=== PATIENT | female | born 1950 | race Caucasian/White ===

== ENCOUNTER 2017-03-03 01:46 | Emergency (ER) | payer MEDICARE, OTHER ==
[2017-03-03] MEDS ORDERED: ONDANSETRON HCL 4 MG/2 ML VIAL ONE (02:04)
[2017-03-03] MEDS ORDERED: KETOROLAC TROMETHAMINE 30 MG/ML VIAL ONE (02:11)
[2017-03-03] MEDS ORDERED: FAMOTIDINE IN SALINE, ISO-OSM 50 ML IV ONE (02:11)
[2017-03-03 02:25] LABS: BLOOD UREA NITROGEN 18 mg/dL (7-17); CHLORIDE 108 mmol/L (98-107); CREATININE 0.7 mg/dL (0.5-1.0); EST GLOMERULAR FILTRATION RATE > 60 mL/min; GLUCOSE 139 mg/dL (70-100); POTASSIUM 3.2 mmol/L (3.5-5.1); SODIUM 143 mmol/L (137-145)
[2017-03-03] MEDS ORDERED: POTASSIUM EFF 25 MEQ TABLET ONE (03:00)
[2017-03-03] MEDS ORDERED: ONDANSETRON ODT PREPAC 4 MG TAB.RAPDIS PO ONE (03:01)
--- NOTE | 2017-03-03 03:43 | ER NURSING DOCUMENTATION ---
Nurse's Notes [facility] Name:Brooklynn Encarnacion Age:66 yrs Sex:Female :1950 Arrival Date:03/03/2017 Time:01:46 Bed4 Private MD:Natasha Rodrigues Diagnosis:Vomiting - Dehydration Presentation: 03/03 01:50 Acuity: HU 2 rh 02:06 Presenting complaint: Patient states: Nausea and vomiting since midnight. Pt awoke, rh vomited once and then has been dry heaving since. Transition of care: Home. 02:06 Method Of Arrival: Private Vehicle rh Triage Assessment: 01:50 General: Appears distressed, uncomfortable, Behavior is anxious. Pain: Complains of rh pain in abdomen. EENT: Oral mucosa is dry. Neuro: Level of Consciousness is awake, alert, obeys commands, Oriented to person, place, time, event. Cardiovascular: Capillary refill < 3 seconds. Respiratory: Airway is patent Respiratory effort is even, Respiratory pattern is hyperventilation. GI: Reports cramping, nausea, vomiting. : No deficits noted. Derm: Skin is intact, is healthy with good turgor, Skin is moist, Skin is pink, warm & dry. Historical: - Allergies: NSAIDS; - Home Meds: 1. meloxicam 7.5 mg oral tab 1 tab once daily 2. Valtrex 1 g oral tab 2 tab 2 times per day, as needed 3. sertraline 100 mg oral tab 1 tab once daily 4. Vitamin B-12 1,000 mcg oral tab 3 times per week 5. aspirin 81 mg oral tab 1 tab once daily - PMHx: DEPRESSION; OSTEOPENIA; SCIATICA; OSTEOARTHRITIS; CONSTIPATION; IBS; GERD; ANXIETY; HYPONATREMIA; HYPERLIPIDEMIA; ADENOCARCINOMA LEFT BREAST; - PSHx: HIP REPLACEMENT R; Tonsillectomy; L FOREARM ORIF; - Tetanus: < 10 years. - Ebola Screening: : Patient negative for fever greater than or equal to 101.5 degrees Fahrenheit, and additional compatible Ebola Virus Disease symptoms. - Immunization history: Flu Vaccine < 1 year. - Social history: Smoking status: Patient states former smoker of tobacco. Screenin:10 Infectious Disease Risk None. Abuse screen: Denies threats or abuse. Denies injuries rh from another. Nutritional screening: No deficits noted. Assessment: 02:10 See Triage Assessment done by same RN. rh Vital Signs: 02:00 BP 162 / 89; Pulse 75; Resp 30; Temp 97.6(TE); Pulse Ox 99% on R/A; Weight 61.23 kg; rh Height 5 ft. 6 in. (167.64 cm); Pain 6/10; 02:26 BP 143 / 85; Pulse 76; Resp 16; Pulse Ox 97% on R/A; rh 03:41 BP 144 / 83; Pulse 78; Resp 16; Pulse Ox 95% on R/A; Pain 0/10; rh 02:00 Body Mass Index 21.79 (61.23 kg, 167.64 cm) rh ED Course: 01:46 Patient arrived in ED. em2 01:46 Natasha Rodrigues MD is Private Physician. em2 01:50 Aviva Danielson is Primary Nurse. rh 01:50 Triage completed. rh 01:54 David Fernández MD is Attending Physician. 01:59 Inserted peripheral IV: 20 gauge in right antecubital area and blood collected. rh 02:00 Notified ED Physician of patient's arrival and chief complaint. Dr. Fernández notified. rh 02:03 Natasha Rodrigues MD is Referral Physician. 02:10 Valuables Remains with patient Patient has correct armband on for positive rh identification. Placed in gown. Bed in low position. Call light in reach. Side rails up X 1. Family accompanied patient. Administered Medications: 01:58 Drug: Zofran 8 mg; Route: IVP; Infused Over: 2 mins; Site: right antecubital; rh 02:35 Follow up: Response: Nausea is decreased rh 01:58 Drug: NS 0.9% 1000 ml; Route: IV; Rate: bolus; Site: right antecubital; rh 02:35 Follow up: IV Status: Completed infusion; IV Intake: 1000ml rh 02:05 Drug: Pepcid 20 mg; Route: IVPB; Site: right antecubital; rh 02:20 Follow up: IV Status: Completed infusion; IV Intake: 50ml rh 02:53 Not Given (Other Intervention Used): Toradol 30 mg IVP once rh 02:53 Drug: Potassium Effervescent Tablet 25 mEq; Route: PO; rh 03:41 Follow up: Response: No adverse reaction rh 03:41 Drug: Zofran 1 tablet; Route: PO; 03:41 Follow up: Response: Pharmacy closed - take home med pack rh Intake: 02:20 IV: 50ml; Total: 50ml. 02:35 IV: 1000ml; Total: 1050ml. Outcome: 02:04 Discharge ordered by . gabi 03:41 Discharged to home ambulatory, with significant other. 03:41 Condition: improved 03:41 Discharge Assessment: Patient awake, alert and oriented x 3. No cognitive and/or functional deficits noted. Patient verbalized understanding of disposition instructions. 03:41 Discharge instructions given to patient, significant other, Instructed on discharge instructions, follow up and referral plans. medication usage, Demonstrated understanding of instructions, medications, Prescriptions given X 1. 03:41 IV D/Craig 03:42 Patient left the ED. 11:17 Discharge F/U Call: Unable to reach: no answer melissa 03/04 13:06 Discharge F/U Call: Unable to reach: no answer Signatures: Evelyn Iyer RN RN ma Pavlish, Lena, RN RN lp Meyer, John, MD MD jm Meinking-reg, [facility] Aviva Danielson
--- NOTE | 2017-03-03 03:43 | ER PHYSICIAN DOCUMENTATION ---
Physician Documentation [facility] Name:Brooklynn Encarnacion Age:66 yrs Sex:Female :1950 Arrival Date:03/03/2017 Time:01:46 Bed4 Private MD:Natasha Rodrigues EDryderDavid Disposition: 03/03/17 02:04 Discharged to Home/Self Care. Impression: Vomiting - Dehydration. - Condition is Good. - Discharge Instructions: VOMITING (5y-Adult). - Prescriptions for Zofran 4 mg Oral Tablet - take 1-2 tablet by ORAL route every 4-6 hours As needed; 10 tablet. - Medical Reconciliation form form. - Follow up: Natasha Rodrigues MD; When: 1 week; Reason: Continuance of care. - Problem is new. - Symptoms have improved. Historical: - Allergies: NSAIDS; - Home Meds: 1. meloxicam 7.5 mg oral tab 1 tab once daily 2. Valtrex 1 g oral tab 2 tab 2 times per day, as needed 3. sertraline 100 mg oral tab 1 tab once daily 4. Vitamin B-12 1,000 mcg oral tab 3 times per week 5. aspirin 81 mg oral tab 1 tab once daily - PMHx: DEPRESSION; OSTEOPENIA; SCIATICA; OSTEOARTHRITIS; CONSTIPATION; IBS; GERD; ANXIETY; HYPONATREMIA; HYPERLIPIDEMIA; ADENOCARCINOMA LEFT BREAST; - PSHx: HIP REPLACEMENT R; Tonsillectomy; L FOREARM ORIF; - Tetanus: < 10 years. - Ebola Screening: : Patient negative for fever greater than or equal to 101.5 degrees Fahrenheit, and additional compatible Ebola Virus Disease symptoms. - Immunization history: Flu Vaccine < 1 year. - Social history: Smoking status: Patient states former smoker of tobacco. Vital Signs: 03/03 02:00 BP 162 / 89; Pulse 75; Resp 30; Temp 97.6(TE); Pulse Ox 99% on R/A; Weight 61.23 kg; rh Height 5 ft. 6 in. (167.64 cm); Pain 6/10; 02:26 BP 143 / 85; Pulse 76; Resp 16; Pulse Ox 97% on R/A; rh 03:41 BP 144 / 83; Pulse 78; Resp 16; Pulse Ox 95% on R/A; Pain 0/10; rh 02:00 Body Mass Index 21.79 (61.23 kg, 167.64 cm) rh MDM: 01:54 Patient medically screened. 03/03 02:29 Order name: BASIC METABOLIC PANEL; Complete Time: 05:50 EDMS 03/03 01:55 Order name: Iv Saline Lock; Complete Time: 01:58 03/03 01:55 Order name: Pulse Ox Continuous; Complete Time: : Dispensed Medications: 01:58 Drug: Zofran 8 mg; Route: IVP; Infused Over: 2 mins; Site: right antecubital; rh 02:35 Follow up: Response: Nausea is decreased 01:58 Drug: NS 0.9% 1000 ml; Route: IV; Rate: bolus; Site: right antecubital; rh 02:35 Follow up: IV Status: Completed infusion; IV Intake: 1000ml rh 02:05 Drug: Pepcid 20 mg; Route: IVPB; Site: right antecubital; rh 02:20 Follow up: IV Status: Completed infusion; IV Intake: 50ml rh 02:53 Not Given (Other Intervention Used): Toradol 30 mg IVP once rh 02:53 Drug: Potassium Effervescent Tablet 25 mEq; Route: PO; rh 03:41 Follow up: Response: No adverse reaction rh 03:41 Drug: Zofran 1 tablet; Route: PO; rh 03:41 Follow up: Response: Pharmacy closed - take home med pack rh Signatures: David Fernández MD MD jm Hofsess, Rachel
== END 2017-03-03 03:42 | disposition home or self-care (01) ==
LOC: ER 01:46
DX: E86.0 Dehydration (principal); R11.2 Nausea with vomiting, unspecified; R10.9 Unspecified abdominal pain; E83.52 Hypercalcemia; Z79.82 Long term (current) use of aspirin; Z79.899 Other long term (current) drug therapy
CPT/HCPCS: 80048; 96361; 96374; 96375; 99284; J1885; J2405